=== PATIENT | male | born 1950 | race Caucasian/White ===

== ENCOUNTER → 2017-05-09 | Outpatient (CLI) | payer OTHER | END | disposition home or self-care (01) | LOC: GMAJ 10:11 | PROVIDERS: ATTEND Family Medicine | DX: Z12.5 Encounter for screening for malignant neoplasm of prostate (principal) ==

== ENCOUNTER → 2018-11-20 | Outpatient (CLI) | payer OTHER | LOC: GMAJ 10:04 | PROVIDERS: ATTEND Family Medicine | DX: Z12.5 Encounter for screening for malignant neoplasm of prostate (principal) ==

== ENCOUNTER → 2018-12-31 | Outpatient (CLI) | payer OTHER ==
--- NOTE | 2018-12-31 11:36 | CT ---
CT SINUSES WITHOUT IV CONTRAST HISTORY: 68 years Male CHRONIC MAXILLARY SINUSITIS, ETHMOIDAL SINUSITIS, NASAL SEPTUM COMPARISON: None. TECHNIQUE: Multiple helical tomographic images were obtained of the sinuses without the use of IV contrast. This exam was performed according to our departmental dose-optimization program, which includes automated exposure control, adjustment of the mA and/or kV according to patient size and/or use of iterative reconstruction technique. FINDINGS: RIGHT SINUSES AND DRAINAGE PATHWAYS Frontal sinus and frontal recess: Unremarkable. Anterior ethmoid air cells: Unremarkable. Maxillary sinus: Suspected prior antrostomy. Small polyp or mucous retention cyst inferiorly. Otherwise unremarkable. Ostiomeatal complex: Patent. Posterior ethmoid air cells: Unremarkable. Sphenoid sinus: Asymmetrically small with sphenoid septation extending to the right lateral wall. No mucosal thickening observed. Aeration of the right lateral pterygoid recess. Right optic nerve and right ICA partially traverse the right sphenoid sinus superiorly, with possible dehiscence of these structures. Sphenoethmoidal recess: Patent. LEFT SINUSES AND DRAINAGE PATHWAYS Frontal sinus and frontal recess: Unremarkable. Anterior ethmoid air cells: Unremarkable. Maxillary sinus: Multiple polyps and/or mucous retention cysts, the largest measuring 3 cm. Prior antrostomy changes. Ostiomeatal complex: Patent. Posterior ethmoid air cells: Unremarkable. Sphenoid sinus: No mucosal thickening. Sellar pneumatization. Septum extends towards the right lateral wall, with portions of both the right and left ICA partially within the sphenoid sinus, with dehiscence possible. Left optic nerve traverses the superolateral portion of the left sphenoid sinus, without evidence of dehiscence by CT. Sphenoethmoidal recess: Patent. ADDITIONAL PERTINENT FINDINGS Cribriform plate/olfactory fossa: Symmetric cribriform plate and fovea ethmoidalis. Olfactory fossae depth measures 9 mm bilaterally (Keros type III). Lamina papyracea: Symmetric. No dehiscence. Anterior ethmoidal arteries: Supraorbital pneumatization of the ethmoid sinuses results in exposure of the anterior ethmoidal arteries bilaterally. Onodi cells: None. Nasal septum: 2 mm leftward deviation. No nasal septal spur. OTHER Partially imaged intracranial structures: No acute abnormality detected. Mastoid air cells: Unremarkable. Remaining included osseous structures: No acute abnormality detected. Severe degenerative changes are present at the atlantoaxial articulation. Remaining overlying soft tissues: No acute abnormality detected. IMPRESSION: Bilateral maxillary polyps versus mucous retention cysts, left greater than right. Maxillary drainage pathways appear patent. Prior left maxillary antrostomy changes. Probable prior right maxillary antrostomy. Asymmetry of the sphenoid sinus with the septum extending to the right lateral wall. There is possible dehiscence of the right optic nerve and bilateral internal carotid arteries. Left optic nerve traverses the superolateral margin of the left sphenoid sinus without obvious CT evidence of dehiscence. Exposure of the anterior ethmoidal arteries bilaterally. Electronically signed by: Santy Lovett MD 12/31/2018 11:34 AM CDT
== END ==
LOC: CT 08:49
PROVIDERS: ATTEND Otolaryngology Otolaryngology/Facial Plastic Surgery
DX: J32.0 Chronic maxillary sinusitis (principal); J32.2 Chronic ethmoidal sinusitis; J34.9 Unspecified disorder of nose and nasal sinuses; J34.2 Deviated nasal septum; H04.221 Epiphora due to insufficient drainage, right side; H04.001 Unspecified dacryoadenitis, right lacrimal gland

== ENCOUNTER → 2019-03-13 | Outpatient (CLI) | payer OTHER | LOC: GMAJ 10:36 | PROVIDERS: ATTEND Family Medicine | DX: Z85.46 Personal history of malignant neoplasm of prostate (principal); E11.9 Type 2 diabetes mellitus without complications; I10 Essential (primary) hypertension ==

== ENCOUNTER → 2019-07-07 | Outpatient (CLI) | payer OTHER ==
--- NOTE | 2019-07-07 11:48 | RAD ---
EXAM DESCRIPTION: Hand,Right 3 Views CLINICAL HISTORY: HAND PAIN COMPARISON: None Available. TECHNIQUE: AP, LATERAL, AND OBLIQUE FINDINGS: The visualized bones appear well mineralized. No acute fracture or dislocation. Severe radiocarpal osteoarthritis with osteophyte formation and subchondral cysts. Chondrocalcinosis of the triangular fibrocartilage. Widening of the scapholunate ligament is noted. Moderate to severe degenerative changes are identified at the metacarpophalangeal joints as well. The soft tissues appear grossly unremarkable. IMPRESSION: Severe radiocarpal osteoarthritis. Moderate to severe degenerative changes of the metacarpophalangeal joints. Chondrocalcinosis of the triangular fibrocartilage. Widening of the scapholunate ligament is noted. Electronically signed by: Walter Su MD 07/07/2019 11:47 AM [facility]
== END ==
LOC: RAD 09:24
PROVIDERS: ATTEND Orthopaedic Surgery
DX: M19.031 Primary osteoarthritis, right wrist (principal); M19.041 Primary osteoarthritis, right hand; M11.231 Other chondrocalcinosis, right wrist; M24.231 Disorder of ligament, right wrist

== ENCOUNTER → 2019-07-13 | Outpatient (CLI) | payer OTHER | LOC: LAB.O 09:26 | PROVIDERS: ATTEND Orthopaedic Surgery | DX: Z01.818 Encounter for other preprocedural examination (principal) ==

== ENCOUNTER 2019-08-19 05:42 | Day surgery (SDC) | payer OTHER ==
[2019-08-19] MEDS ORDERED: LIDOCAINE 1% 10 ML VIAL INJ ONE ×2 (07:00→09:46)
[2019-08-19] MEDS ORDERED: PROPOFOL 200 MG/20 ML VIAL IV ONE (07:00)
[2019-08-19] MEDS ORDERED: VANCOMYCIN HCL INJ 1,000 MG VIAL IVPB ONE (09:46)
[2019-08-19] MEDS ORDERED: BUPIVACAINE 0.25% INJ 30 ML VIAL INJ ONE (09:46)
[2019-08-19] MEDS ORDERED: ceFAZolin SODIUM 1 GM VIAL ONE ×2 (09:46→10:20)
[2019-08-19] MEDS ORDERED: SODIUM CHL 0.9% 100ML MINI-BAG 100 ML IVPB ONE (10:20)
[2019-08-19] MEDS ORDERED: LACTATED RINGERS 1,000 ML ONE (10:21)
[2019-08-19] MEDS ORDERED: fentaNYL CITRATE INJ 50 MCG/ML AMP ONE (10:29)
[2019-08-19] MEDS ORDERED: KETAMINE HCL 100 MG/ML VIAL ONE (10:29)
[2019-08-19] MEDS ORDERED: MIDAZOLAM INJ 2 MG/2 ML VIAL ONE (10:29)
[2019-08-19 11:53] VITALS: O2SAT 95
[2019-08-19 13:30] VITALS: BP 133/74; TEMP 97.1
--- NOTE | 2019-09-01 10:41 | OP ---
DATE OF PROCEDURE: 08/19/19 PREOPERATIVE DIAGNOSIS: 1. Right carpal tunnel syndrome. POSTOPERATIVE DIAGNOSIS: 1. Right carpal tunnel syndrome. PROCEDURE: 1. Carpal tunnel release. SURGEON: Doyle Brooke MD. COOLER ROOM WORKER: Bull Perez CST, SA-C. ANESTHESIA: Local with sedation. COMPLICATIONS: None. FINDINGS: 1. Thinning of the median nerve across the carpal tunnel. 2. Thickening of the transverse carpal ligament. INDICATION: Isaías has a history of carpal tunnel syndrome with symptoms concordant with that. He has had use of anti-inflammatories and bracing. However, he has failed to gain relief. Because of his consistent and ongoing symptoms, he has requested operative intervention. After discussing the risks, benefits and alternatives to that, the patient has given informed consent for carpal tunnel release. PROCEDURE: The patient was brought to the Operating Room and placed in the supine position. Sedation was administered and local anesthetic was injected into the operative area under sterile conditions. After the injection of anesthetic, the arm was sterilely prepped and draped. A longitudinal incision was made directly overlying the transverse carpal ligament and blunt dissection was carried down to the ligament. The transverse carpal ligament was sharply transected along its length and a [place] elevator was used to ensure complete release of the ligament. Once release had been confirmed, the wound was thoroughly irrigated and the wound was closed with Nylon suture. A sterile dressing was placed and the patient was taken to the Day Surgery Unit. POSTOPERATIVE PLAN: The patient has been encouraged to do range of motion of the digits and will followup with us in two days. #[id number] [facility]
== END 2019-08-19 12:38 | disposition home or self-care (01) ==
LOC: AMB 05:42
PROVIDERS: ATTEND Orthopaedic Surgery
DX: G56.01 Carpal tunnel syndrome, right upper limb (principal); E11.9 Type 2 diabetes mellitus without complications; I10 Essential (primary) hypertension; Z79.84 Long term (current) use of oral hypoglycemic drugs; Z79.82 Long term (current) use of aspirin; Z79.899 Other long term (current) drug therapy
CPT/HCPCS: 01810; 36416; 64721; 80307; 82948; J0690; J2250; J3010; J3370; J3490; J7050; J7120

== ENCOUNTER → 2020-01-28 | Outpatient (CLI) | payer OTHER | LOC: GMAJ 11:43 | PROVIDERS: ATTEND Family Medicine | DX: Z85.46 Personal history of malignant neoplasm of prostate (principal) ==

== ENCOUNTER → 2020-02-04 | Outpatient (CLI) | payer OTHER ==
--- NOTE | 2020-02-04 09:14 | CT ---
EXAM DESCRIPTION: Chest w/o Contrast CLINICAL HISTORY: COUGH COMPARISON: None available TECHNIQUE: Chest CT was performed without IV contrast. This exam was performed according to our departmental dose-optimization program, which includes automated exposure control, adjustment of the mA and/or kV according to patient size and/or use of iterative reconstruction technique. FINDINGS: No thoracic aortic aneurysm. No hiatal hernia. No pleural or pericardial effusion. The main pulmonary artery is not dilated. Limited sensitivity for detection of adenopathy due to lack of IV contrast, no mediastinal or hilar adenopathy is seen. The central airways are clear. No airspace consolidation or lung mass. Subsegmental atelectasis or scarring in the lingula questionable lung nodule measuring up to 1 cm diameter at the same location. No additional lung nodule. Visualized portions of the upper abdomen are unremarkable for noncontrast technique. Degenerative changes in the thoracic spine at several levels. No fracture or pneumothorax. IMPRESSION: No pneumonia or other acute intrathoracic abnormality to explain cough. Probable subsegmental atelectasis or scarring in the lingula with a nodular configuration measuring up to 1 cm diameter. True lung nodule this location is considered less likely, but follow-up chest CT in three months is recommended to document stability or resolution. Electronically signed by: Alli Madison MD 02/04/2020 9:12 AM CDT
== END ==
LOC: CT 08:00
PROVIDERS: ATTEND Family Medicine
DX: R05 Cough (principal); R91.8 Other nonspecific abnormal finding of lung field

== ENCOUNTER → 2020-08-22 | Outpatient (CLI) | payer OTHER ==
--- NOTE | 2020-08-22 10:40 | CT ---
EXAM DESCRIPTION: Chest w/Contrast CLINICAL HISTORY: 70 years Male, solitary pulmonary nodule COMPARISON: 04 February 2020 TECHNIQUE: Transaxial images were obtained with intravenous contrast media. Sagittal and coronal reconstruction was performed.This exam was performed according to our departmental dose-optimization program, which includes automated exposure control, adjustment of the mA and/or kV according to patient size and/or use of iterative reconstruction technique. FINDINGS: The thyroid is normal in appearance. No pathologic axillary adenopathy is observed. No hilar or mediastinal adenopathy is seen. Minimal coronary artery calcification is noted. The liver and spleen as imaged are normal. No adrenal masses are detected. No parenchymal infiltrate is detected. No pulmonary nodule or mass is detected. Minimal scarring is observed in the lingula. IMPRESSION: No pulmonary nodule is seen. There is minimal scarring in the lingula. Electronically signed by: Tico Yin MD 08/22/2020 10:39 AM [facility]
== END ==
LOC: CT 08:54
PROVIDERS: ATTEND Family Medicine
DX: Z01.812 Encounter for preprocedural laboratory examination (principal); R91.1 Solitary pulmonary nodule

== ENCOUNTER → 2020-09-23 | Outpatient (CLI) | payer MEDICARE | LOC: GMAJ 12:54 | PROVIDERS: ATTEND Family Medicine | DX: I10 Essential (primary) hypertension (principal); E11.9 Type 2 diabetes mellitus without complications; Z13.29 Encounter for screening for other suspected endocrine disorder ==